=== PATIENT | female | born 1960 | race Caucasian/White ===

== ENCOUNTER 2020-06-04 10:30 | Outpatient (CLI) | payer BC, SELFPAY ==
--- NOTE | ~2020-06-04 | MM_ITS ---
EXAMINATION: MM screening christopher BI w marie HISTORY: Screening TECHNIQUE: Craniocaudal and mediolateral oblique 3-D tomosynthesis images were obtained and synthetic 2-D images were generated. CAD analysis was submitted and interpreted. COMPARISON: Comparison to multiple prior studies sequentially, with oldest reviewed study dated 01/23. BREAST PARENCHYMAL COMPOSITION: The breasts are heterogeneously dense, which may obscure small masses . FINDINGS: There is no evidence of suspicious mass, calcification, or architectural distortion to sugg est malignancy in either breast. There has been no suspicious interval change. IMPRESSION: 1. No mammographic evidence of malignancy. 2. Recommend routine screening mammography in one year. BI-RADS Category 1: Negative Reviewed, dictated and finalized at location A. LIBRARIAN
== END 2020-06-04 10:31 | disposition home or self-care (01) ==
LOC: ANHIMG 10:32
PROVIDERS: PCP Internal Medicine; Visit Provider Obstetrics & Gynecology
DX: Z12.31 Encounter for screening mammogram for malignant neoplasm of breast (principal)
CPT/HCPCS: 77063; 77067

== ENCOUNTER 2021-08-22 14:11 | Outpatient (CLI) | payer BC, SELFPAY ==
--- NOTE | ~2021-08-22 | MM_ITS ---
EXAMINATION: MM screening christopher BI w marie HISTORY: Screening mammogram TECHNIQUE: Craniocaudal and mediolateral oblique 3-D tomosynthesis images were obtained and synthetic 2-D images were generated. CAD analysis was submitted and interpreted. COMPARISON: 06/04/2020 bilateral screening mammogram 06/27/2019 diagnostic left mammogram 05/2019 bilateral screening mammogram BREAST PARENCHYMAL COMPOSITION: The breasts are heterogeneously dense, which may obscure small masses . FINDINGS: There is biopsy marker adjacent to a stable circumscribed approximately 8 mm mass in the po sterior lower inner right breast; history of benign pathology. There is no evidence of suspicious mas s, calcification, or architectural distortion to suggest malignancy in either breast. There has been no suspicious interval change. IMPRESSION: 1. Benign finding. No mammographic evidence of malignancy. 2. Recommend routine screening mammography in one year. BI-RADS Category 2: Benign finding(s). Reviewed, dictated and finalized at location A. UNICATION SKILLS INSTRUCTOR
== END 2021-08-22 14:12 | disposition home or self-care (01) ==
LOC: ANHIMG 14:13
PROVIDERS: PCP Internal Medicine; Visit Provider Obstetrics & Gynecology
DX: Z12.31 Encounter for screening mammogram for malignant neoplasm of breast (principal)
CPT/HCPCS: 77063; 77067

== ENCOUNTER 2022-01-02 13:27 | Outpatient (CLI) | payer BC, SELFPAY | END 2022-01-02 13:28 | disposition home or self-care (01) | PROVIDERS: PCP Physician Assistant; Visit Provider Obstetrics & Gynecology | DX: Z01.818 Encounter for other preprocedural examination (principal); Z41.9 Encounter for procedure for purposes other than remedying health state, unspecified | CPT/HCPCS: 36415; 86850; 86900; 86901 ==

== ENCOUNTER 2022-01-09 01:16 | Day surgery (SDC) | payer BC, SELFPAY ==
[2022-01-01 15:33] VITALS: BMI 37.6
--- NOTE | 2022-01-01 15:41 | PC.NURSE ---
Report to the Outpatient Waiting Room, entrance under the green pavilion located off [facility], at time __11:30AM on date __[id number] . OR Time: __13:30PM___. - You and your visitor will be asked a series of questions to screen for COVID 19 for your protection. - Only one visitor is allowed at this time. - The patient visitor is requested to leave or wait in car when not with patient. - A mask is required within the hospital. Patients may have clear liquids (water, carbonated beverages, clear teas, apple juice) until 3 hours prior to surgery with a maximum of 20 ounces. NOTHING AFTER 10:30AM - No food from midnight until time of surgery Take the following medications with a SIP of water the morning of surgery: Medications to discontinue per physician Date to take last dose Please no make-up, nail montserratian, hairspray, perfume, deodorant, or body powder the day of surgery. No jewelry (including any body piercings) or valuables the day of surgery, leave them at home. Please take a shower or bath the night before, or the morning of, surgery with an antibacterial soap. Wear comfortable, loose fitting clothing. - Jewelry must be removed prior to entering the operating room. Rings and piercings that are not removed may be cut off. - The hospital will not accept responsibility for valuables. - Please leave all valuables, including medications, at home the day of surgery. If you are going home after surgery, a licensed double bottom driver must drive you home. - NO public transportation without another adult. - We recommend that an adult stay with you for 24 hours following discharge. - We also recommend that you do not drive, make important decision, drink alcoholic beverages, or take any drugs that were not prescribed by your health care provider for at least 24 hours after your discharge time. Follow any additional instructions given to you from your surgeon. If you or anyone in your household have experienced Covid symptoms in the past week, please notify your surgeon or the nurse liaison at the phone number below for possible testing. Telephone instructions given to ____PATIENT and asked if any additional questions and then verbalized understanding. Patient advised to call surgeon office or pre surgery nurse liaison [phone] if any additional questions.
--- NOTE | 2022-01-08 12:26 | P.PNAN_ITS ---
Anes - Initial Pre Proc Eval Procedure: Operation Date: 01/09/22 13:30 Proposed Procedures p Laparoscopic Left Salpingo Oophorectomy - Peña Figueroa MD Date/Time: 01/08/22 12:26 Surgeon: Peña Figueroa MD Pre Op Diagnosis: left ovarian cyst, lower left quad pain Patient Data Age: 61 Gender: F Height: 1.7 m Weight: 109 kg Allergies Allergy/AdvReac Type Severity Reaction Status Date / Time metronidazole AdvReac Mild Nausea and Verified 01/09/22 11:42 Vomiting Penicillins AdvReac Unknown UNKNOWN- WAS Verified 01/09/22 11:41 WHEN I WAS A BABY Home Medications Medication Instructions Recorded Confirmed Type Betahistine 8 mg PO TID 01/09/22 01/09/22 History cyanocobalamin (vitamin B-12) 500 500 mcg PO EVERY OTHER DAY 01/09/22 01/09/22 History mcg tablet Patient hx anesthesia problems: none Family hx anesthesia problems: none Results Review: All pre-operative results and documents have been reviewed as part of the pre- operative evaluation. [facility]LY [facility] Past Medical History Medical History Diverticulosis Obesity PONV (postoperative nausea and vomiting) Surgical History Surgical History H/O: hysterectomy History of colon resection Social History Social History Smoking status: Never smoker Second hand tobacco smoke exposure: Yes (PARENTS) Alcohol intake: former Substance use: never Substance use type: does not use Living arrangements: with family Spiritual care concerns: No Anes - Eval Final PreProcedure Day of Procedure 01/08/22 12:26 Patient weight: obese Heart: regular rate and rhythm Lungs: clear to auscultation and normal air movement Airway: Mallampati scale class II Neurological: alert and oriented Last oral intake: >/= 8 hours ASA classification: II Emergent: no Anesthetic plan: proceed Anesthesia type and monitoring: general ETT Results Review: All pre-operative results and documents have been reviewed as part of the pre- operative evaluation. Informed Consent: The patient's anesthetic plan and its attendant risks and benefits were discussed with the patient/family/POA. Questions were solicited and answers provided to the satisfaction of the patient/family/POA.
[2022-01-09] VITALS (11 sets, daily range): BP systolic 116–157; BP diastolic 60–97; PULSE 43–65; RESP 10–20; TEMP 36.2–36.5; O2SAT 93–100
--- NOTE | 2022-01-09 12:03 | PM.IMHP ---
H&P: HPI History of Present Illness Date/Time: 01/09/22 12:03 61 y/o with a longstanding history of a 7 cm, simple-appearing, left adnexal cyst. She has intermittent pain in the area. She is ready for surgical management of her problem. Chief Complaint: Ovarian cyst Review of Systems Review of Systems: All systems reviewed & are unremarkable except as noted in HPI and below PMFSH Past Medical History Medical History Diverticulosis Obesity PONV (postoperative nausea and vomiting) Surgical History Surgical History H/O: hysterectomy History of colon resection Social History Social History Smoking status: Never smoker Second hand tobacco smoke exposure: Yes (PARENTS) Alcohol intake: former Substance use: never Substance use type: does not use Living arrangements: with family Spiritual care concerns: No Meds Home Medications and Allergies Home Medications Medication Instructions Recorded Confirmed Type Betahistine 8 mg PO TID 01/09/22 01/09/22 History cyanocobalamin (vitamin B-12) 500 500 mcg PO EVERY OTHER DAY 01/09/22 01/09/22 History mcg tablet Allergies Allergy/AdvReac Type Severity Reaction Status Date / Time metronidazole AdvReac Mild Nausea and Verified 01/09/22 11:42 Vomiting Penicillins AdvReac Unknown UNKNOWN- WAS Verified 01/09/22 11:41 WHEN I WAS A BABY Vital Signs AVSS Exam Const: Orientation/consciousness: patient oriented x3 Other: Well-developed, well-nourished female in no acute distress. Neck: Thyroid: thyroid normal Lymphatic: no lymphadenopathy noted (in neck, axilla or inguinal nodes) Resp: Effort & Inspection: normal respiratory effort Auscultation: clear to auscultation bilaterally Cardio: Rate: regular rate Rhythm: regular rhythm Heart sounds: S1 normal heart sound present and S2 normal heart sound present GI: Other: ABD: Soft, nontender, nondistended. No guarding or rebound tenderness. No hepatosplenomegaly. : General: Yes no CVA tenderness Other: External genitalia: normal female hair distribution, without lesion. Urethral meatus: no lesion, non prolapsed. Bladder: no mass, nontender Vagina: atrophic, without lesion or discharge. No cystocele or rectocele. Cervix: absent. Uterus: absent Adnexa: Some left adnexal tenderness. Anus/perineum: no lesions, nontender Back/Spine/Pelvis: Back: no CVA tenderness Skin: General skin exam: normal color and no rashes or lesions noted Neuro: General: patient oriented x3 Extrem: Other: Extremities: nontender with no edema Psych: Mental Status: mental status grossly normal Affect: normal affect Assessment and Plan Assessment and plan (1) Left ovarian cyst: Code(s): N83.202 - Unspecified ovarian cyst, left side Status: Acute Assessment and Plan: A: Persistent simple left adnexal cyst in the setting of pain. P: Offered laparoscopic left salpingooophorectomy. She understands risks of surgery to include risks of anesthesia, risks of pain, infection, bleeding, blood products, thromboembolic phenomena and damage to adjacent structures such as bowel, bladder, ureters, blood vessels and nerves. She understands all these risks and elects to proceed with surgery.
--- NOTE | 2022-01-09 12:08 | WPDHPUPDATE1 ---
History and Physical Update Update Date/Time: 01/09/22 12:08 History and Physical has been reviewed, including an updated exam of the patient. There are NO changes in the patient's condition. Risks, benefits, and alternatives have been discussed and questions answered. Patient agrees to proceed with procedure.
[2022-01-09] MEDS: ACETAMINOPHEN 500 MG TABLET 1000 MG PO (12:09)
[2022-01-09] MEDS: LACTATED RINGERS 1,000 ML 30 ML IV CONT ×2 (12:20→14:13)
[2022-01-09] MEDS: KETOROLAC 15 MG/ML VIAL (*BKC) IV PUSH ×2 (12:22→17:20)
[2022-01-09] MEDS: SCOPOLAMINE 1.5 MG PATCH TRANSDERM (12:27)
--- NOTE | 2022-01-09 14:05 | P.OP_ITS ---
Procedure Note - Detailed Date of Procedure 01/09/22 Pre-op Diagnosis Pelvic pain Left adnexal cyst Post-op Diagnosis Same Procedure Performed Laparoscopic LSO Surgeon Peña Figueroa MD Anesthesia General Findings Adhesions between omentum and anterior abdominal wall. 7 cm simple left ovarian cyst. Surgically absent uterus, cervix, right tube and ovary. Description of Procedure The patient was taken to the operating room where general endotracheal anesthesi a was administered. She was prepared and draped in the usual sterile fashion in the dorsal lithotomy position. The bladder was drained with a red rubber catheter. A sponge stick was placed into the vagina. Gloves were changed and attention was turned to the abdomen. An infraumbilical skin incision was made with a scalpel. The abdomen was tented and a 5 millimeter bladeless trocar trocar was advanced under direct laparoscopic visualization. Pneumoperitoneum was administered using carbon dioxide gas. A survey of the pelvis and abdomen yielded the findings noted above. A second 5 mm incision was made in the right lower quadrant and a 5 mm bladeless trocar was advanced under direct laparoscopic visualization. An 11-12 mm port was similarly placed in the left lower quadrant. Endoshears were used to lyse adhesions in order to visualize the pelvic anatomy. The left ureter was visualized. Adhesiolysis was undertaken to free the left adnexa from the pelvic sidewall. The simple ovarian cyst ruptured and clear serous fluid was noted. The infundibulopelvic ligament on the left was then clamped, ligated and transected using ligasure. The specimen was withdrawn and sent to pathology. The pelvis was irrigated with warmed normal saline. Hemostasis was excellent. The fascia at the left lower quadrant incision was reapproximated with a single interrupted suture of 0 Vicryl. The trocars were withdrawn and the gas was allowed to escape. The skin incisions were reapproximated using 4-0 Vicryl in interrupted subcuticular fashion. Dermaflex was applied externally. The vaginal sponge stick was withdrawn and hemostasis was excellent here as well. Sponge, lap, needle and instrument counts were correct. The patient was awakened and taken to recovery in stable condition. I was present and scrubbed through the entire procedure. Estimated Blood Loss 5 Drains No Packing No Pathology Yes (Left tube and ovary) Complications None Condition Stable Disposition PACU
[2022-01-09] MEDS: fentaNYL CITRATE INJ (*CRX) 100 MCG/2 ML VIAL 25 MCG IV PUSH ×8 (14:39→17:04)
[2022-01-09] MEDS: oxyCODONE HCL (*CRX) 5 MG TAB IR PO (16:08)
--- NOTE | 2022-01-09 16:37 | SUR.PHASEII ---
Notified anesthesia regarding patient's increased pain despite use of pain pill. Ordered to give remaining doses of IV fentanyl.
[2022-01-09] MEDS: HYDROmorphone HCL INJ (*CRX) 1 MG/ML SYR 0.5 MG IV PUSH (17:25)
--- NOTE | 2022-01-09 17:25 | SUR.PHASEII ---
171- Notified Dr. Mari of patient's continued pain despite receiving the remaining doses of fentanyl. Orders received and completed. See MAR documentation.
== END 2022-01-09 17:36 | disposition home or self-care (01) ==
PROVIDERS: PCP Physician Assistant; Visit Provider Obstetrics & Gynecology
PROC: (CPT 49320; principal; 2022-01-09 13:30)
DX: R10.2 Pelvic and perineal pain (principal); D27.1 Benign neoplasm of left ovary; Z90.710 Acquired absence of both cervix and uterus; N73.6 Female pelvic peritoneal adhesions (postinfective); E66.9 Obesity, unspecified; Z68.37 Body mass index [BMI] 37.0-37.9, adult
CPT/HCPCS: 58661; 88305; A9270; J0330; J1100; J1170; J1885; J2405; J2704; J3010; J7120

== ENCOUNTER 2023-09-14 14:21 | Outpatient (CLI) | payer BC, SELFPAY ==
--- NOTE | ~2023-09-14 | MM_ITS ---
EXAMINATION: MM screening christopher BI w marie HISTORY: Screening TECHNIQUE: Craniocaudal and mediolateral oblique 3-D tomosynthesis images were obtained and synthetic 2-D images were generated. CAD analysis was submitted and interpreted. COMPARISON: Comparison to multiple prior studies sequentially, with oldest reviewed study dated 09/2018. BREAST PARENCHYMAL COMPOSITION: Dense: The breasts are heterogeneously dense, which may obscure small masses FINDINGS: There is no evidence of suspicious mass, calcification, or architectural distortion to sugg est malignancy in either breast. There has been no suspicious interval change. Stable benign-appearin g right breast mass. IMPRESSION: 1. No mammographic evidence of malignancy. 2. Recommend routine screening mammography in one year. BI-RADS Category 2: Benign finding(s). Reviewed, dictated and finalized at location A.
== END 2023-09-14 14:22 | disposition home or self-care (01) ==
LOC: ANHIMG 14:23
PROVIDERS: PCP Physician Assistant; Visit Provider Obstetrics & Gynecology
DX: Z12.31 Encounter for screening mammogram for malignant neoplasm of breast (principal)
CPT/HCPCS: 77063; 77067

== ENCOUNTER 2024-10-31 15:23 | Outpatient (CLI) | payer BC, SELFPAY ==
--- NOTE | ~2024-10-31 | MM_ITS ---
EXAMINATION: MM screening christopher BI w marie HISTORY: Screening TECHNIQUE: Craniocaudal and mediolateral oblique 3-D tomosynthesis images were obtained and synthetic 2-D images were generated. CAD analysis was submitted and interpreted. COMPARISON: Comparison to multiple prior studies sequentially, with oldest reviewed study dated 04/30. BREAST PARENCHYMAL COMPOSITION: Not dense: There are scattered areas of fibroglandular density. FINDINGS: There is no evidence of suspicious mass, calcification, or architectural distortion to sugg est malignancy in either breast. There has been no suspicious interval change. IMPRESSION: 1. No mammographic evidence of malignancy. 2. Recommend routine screening mammography in one year. BI-RADS Category 1: Negative Reviewed, dictated and finalized at location A.
--- OUTSIDE RECORDS SUMMARY | 2024-10-31 16:16 | XMS_ITS | Encounter Summary ---
Author Organization [facility] Healthcare Address [address] [place] [address] Care Team Providers Care Electro Mechanical Engineer Name Role Phone Roger Vela MD Unavailable [phone] Lyle Steele Primary Care Provider Gerard Spicer MD Unavailable [phone] Encounter Details Date Type Department Care Team (Late st Contact Info) Description 08/04/2024 Telephone [facility] Primary Care at [address] [place] [address] Lyle Steele PA [address] [place] [address] [address] [place] [address] Social History Tobacco Use Types Packs/Day Years Used Date Smoking Tobacco: Never Smokeless Tobacco: Never Alcohol Use Standard Drinks/Week Comments No 0 (1 standard drink = 0.6 oz pur e alcohol) Social Connection and Isolat ion Panel [NHANES] Answer Date Recorded In a typical week, how many times do you talk on the phone with family, friends, or neighbors? More than three times a week 11/21/2020 How often do you get togethe r with friends or relatives? Once a week 11/21/2020 How often do you attend chur or episcopal services? Never 11/21/2020 Do you belong to any clubs o r organizations such as buddhism groups, unions, fraternal or athletic groups, or school groups? No 11/21/2020 How often do you attend meet ings of the clubs or organizations you belong to? Never 11/21/2020 Are you , , di vorced, , never , or living with a partner? 11/21/2020 AUDIT-C Answer Date Recorded Q1: How often do you have a drink containing alcohol? Never 07/26/2024 Q2: How many drinks containi ng alcohol do you have on a typical day when you are drinking? Patient does not drink Q3: How often do you have si x or more drinks on one occasion? Never 07/26/2024 Overall Financial Resource Strain (CARDIA) Answe r Date Recorded How hard is it for you to pa y for the very basics like food, housing, medical care, and heating? Not hard at all 11/21/2020 PHQ-2 Answer Date Recorded PHQ-2 Total Score (If total score is 3 or more points, staff should administer the PHQ-9) 0 07/26/2024 PRAPARE - Transportation Answer Date Re corded In the past 12 months, has l ack of transportation kept you from medical appointments or from getting medications? No 10/28 In the past 12 months, has l ack of transportation kept you from meetings, work, or from getting things needed for daily living? No 11/21/2020 Personal Safety Answer Date Recorded Have you ever been in or are you currently in a harmful physical or emotional relationship or is someone making you feel afraid or unsafe? 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 05/21/2024 05/31/2024 08/19/2024 3:[address] documented as of this encounter Care Teams Electro Mechanical Engineer Relationship Specialty Start Date End Date Lyle Steele PA [address] [place] [address] PCP - General Internal Medicine 02/27/22 [place] [address] [place] [address] Consulting Physician Gastroenterology 11/25/20 Gerard Spicer MD [address] [place] [address] Surgeon Orthopedic Surgery 07/21/23 [facility] 07/26/24 documented as of this encounter
--- OUTSIDE RECORDS SUMMARY | 2024-10-31 16:16 | XMS_ITS | Clinical Summary ---
Author Organization [facility] Address [address] [place] [address] Phone Care Team Providers Care Dermatology Specialist Name Role Phone Peña Figueroa MD Primary Care Provider Allergies Active Allergy Reactions Criticality Noted Date Comments Penicillins Unknown 05/07/2009 Pt had as a child Medications No known medications Active Problems Patient Care Coordination No te Formatting of this note migh t be different from the original. Primary Care: Peña Figueroa MD Referring Provider: No referring provider defined for this encounter. Other: Dr. 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 Gender Identity Not on file Sexual Orientation Not on file Last Filed Vital Signs Vital Sign Reading Time Taken Comments Blood Pressure 121/78 06/18/2009 3:45 PM FIRE ENGINE PUMP OPERATOR Pulse - - Temperature - - Respiratory Rate - - Oxygen Saturation - - Inhaled Oxygen Concentration - - Weight 104.3 kg (230 lb) 06/18/2009 3:45 PM FIRE ENGINE PUMP OPERATOR Height 172.7 cm (5' 8 ) 06/18/2009 3:45 PM FIRE ENGINE PUMP OPERATOR Body Mass Index 34.97 06/18/2009 3:45 PM FIRE ENGINE PUMP OPERATOR Plan of Treatment Health Maintenance Due Date Last Done Comments DTAP/TDAP/TD VACCINES (1 - Tdap) 1979 HPV/Cotest (21-29) 1981 CERVICAL CANCER SCREENING 1990 HPV/Cotest (30-65) 1990 PAP SMEAR 1990 COLORECTAL SCREENING 2005 Colorectal Cancer Screening 2005 FIT-DNA Q 3 years 2005 FIT/FOBT Q 1 year 2005 Flex Sig/CT Colonography Q 5 years 2005 BREAST CANCER SCREENING 05/07/2010 05/07/2009 ZOSTER VACCINE (1 of 2) 2010 INFLUENZA VACCINE (#1) 2024 RSV VACCINE (60+ or ) (1 - 1-dose 75+ series) 2035 Procedures Procedure Name Priority Date/Time Associated Diagnosis Comments MAMMO DIAGNOSTIC UNI RIGHT W OR WO CAD Routine 05/07/2009 from Last 3 Months or Most Recently Relevant to Health Maintenance Results * MAMMO DIGITAL DIAG UNI RIGHT (05/07/2009) Anatomical Region Laterality Modality Breast Right Other Geno Loja MD MAMMO ORDERABLES Final Result from Last 3 Months or Most Recently Relevant to Health Maintenance Care Teams Dermatology Specialist Relationship Specialty Start Date End Date Peña Figueroa MD [address] [facility] [address] [place] [address] PCP - General 05/07/09
--- OUTSIDE RECORDS SUMMARY | 2024-10-31 16:16 | XMS_ITS | Referral Summary ---
Author Organization [facility] Building A Address [address] [place] [address] Care Team Providers Care Flavorer Name Role Phone Roger Ellsworth MD Unavailable [phone] Lyle Steele Primary Care Provider Gerard Spicer MD Unavailable [phone] Encounters Date Type Department Care Team Description 10/26/2024 Orders Only [facility] Primary Care at [address] [place] [phone] Lyle Steele PA Osteopenia, unspecified location (Primary Dx) 10/26/2024 Results Follow-Up [facility] Primary Care at [address] [place] [phone] Lyle Steele PA 10/25/2024 10:39 AM CDT - 10/25/2024 11:59 PM CDT Hospital Encounter [facility] [address] [place] [address] Osteoporosis screening; Postmenopausal Discharge Disposition: Discharge to home or self care 10/25/2024 10:15 AM CDT Office Visit [facility] Orthopedics and Sports Medicine [address] [facility] [address] [place] [phone] Gerard Spicer MD Primary osteoarthritis of right knee (Primary Dx) 08/04/2024 Telephone [facility] Primary Care at [address] [place] [address] Lyle Steele PA from Last 3 Months Allergies Active Allergy Reactions Criticality Noted Date Comments Metronidazole Nausea & Vomiting Low 01/13/2019 Penicillins Unknown 05/07/2009 Pt had as a child; cefazolin was given in 02/2021 Medications cyanocobalamin (Vitamin B-12) 500 mcg tabletIndicatio ns:Prevention of Vitamin B12 Deficiency Take 1 tablet (500 mcg total) by mouth daily. 30 tablet 11 11/09/2017 Active omeprazole 20 mg tablet,delayed release (DR/EC) Take by mouth Active betahistine TAKE 1 CAPSULE (8 MG TOTAL) BY MOUTH 3 TIMES A DAY WITH FOOD 270 capsule 1 05/02/2024 Active Hospital, Clinic, or Other Facility Administered Medication Ordered Dose Route Frequency Start Date End Date Status lidocaine (XYLOCAINE) 20 mg/mL (2 %) injection 3 mLIndications:Admini stration of Local Anesthesia 3 mL One-Time Injection 10/25/2024 5 Ended methylPREDNISolone acetate (DEPO-medrol) injection 80 mgIndications:Primar y osteoarthritis of right knee 80 mg intra-artic One-Time Injection 10/25/2024 5 Ended Active Problems Problem Noted Date Diagnosed Date Functional dyspepsia 05/03/2024 Arthritis 02/14/2022 Peripheral tear of lateral m eniscus of right knee as current injury 03/15/2021 Overview (03/15/2021): Added automatically from request for surgery [id number] Primary osteoarthritis of right knee 09/12/2020 Class 2 obesity with body ma ss index (BMI) of 38.0 to 38.9 in adult 07/18/2020 Assessment & Plan (07/26/2024 8:29 AM ENVIRONMENTAL COMPLIANCE SPECIALIST): The patient was counseled on the importance of maintaining a healthy weight and the risks of obesity. Weight loss recommended. Assessment & Plan (05/11/2024 4:00 PM ENVIRONMENTAL COMPLIANCE SPECIALIST): Wt Readings from Last 3 Encounters: 05/11/24 105.6 kg (232 lb 14.4 oz) 04/28/24 108 kg (238 lb) 01/19/24 107.7 kg (237 lb 6.4 oz) Body mass index is 38.76 kg/m . -Stable, not at goal of <30 bmi -Discussed recommendations for exercise at least 30 minutes moderate to vigorous exercise as tolerated most days of the week. (minimum 150 minutes weekly) -Discussed importance of well-balanced diet Assessment & Plan (05/13/2021 10:38 AM ENVIRONMENTAL COMPLIANCE SPECIALIST): Wt up Assessment & Plan (01/21/2021 11:20 AM CDT): Work to drop over time Assessment & Plan (07/18/2020 10:41 AM ENVIRONMENTAL COMPLIANCE SPECIALIST): Cont to drop some wt Posterior knee pain, right 07/18/2020 Assessment & Plan (07/18/2020 10:43 AM ENVIRONMENTAL COMPLIANCE SPECIALIST): Not clear if knee or thigh not apparent nerve would askortho for eval and Thoughts.workup and rx. Gastroesophageal reflux disease without esophagi tis 07/04/2020 Assessment & Plan (05/13/2021 10:37 AM ENVIRONMENTAL COMPLIANCE SPECIALIST): gerd contoroled and not on ppi consdier pepcidif needs there Assessment & Plan (01/21/2021 11:18 AM CDT): prilisec 20 restarted by gi. And warned about renal effect and prefers not on and lacho monitor renal and recheck 24 hr ruien on reutnrTo try to minimize the worsening and possible improvement in the renal function there are several things to try to do. The patient should work to get off of (if on) drugs Like Prilosec/prevacid/protonix/nexium,etc. This does not include zantac/pepcid or Tagement. It ws shown that there is an increased risk of kidney dysfunction if you use Prilosec like meds.The patient should also stay off of regular use of scripted arthritis pills like Celebrex.mobic,naprosyn,etc. The over the counter pills of this nature are Advil/motrin/ibuprofen and aleve/naproxen. Regular use of these over the counter pills, Particularly at high doses and not scattered use of the meds also can harm the kidneys. Assessment & Plan (07/18/2020 10:39 AM ENVIRONMENTAL COMPLIANCE SPECIALIST): Hiccups with meat and not lequids or other items in general . Getting colon on mond and will ask to wsee if gi can't do egd at same time to eval the prilosec reportedly was 300$ and not covered. Ask to have her review with the gi dr ellsworth as to what is going on so if egd not an anwer he can then go to the next step or send back to use then if no answer. . Would not want on ppil for longer then have to if neeeded but aware there if a dissaggresment with gi and renal when it comes to the med of this type Assessment & Plan (07/04/2020 11:32 AM ENVIRONMENTAL COMPLIANCE SPECIALIST): Prolonged top Or tori of month for over a month and neg strep trial prilosce 20 bid and diet and see if Helps. Renal effect disscused but lats gfr nl and montior and try to get off Chronic UTI 07/06/2019 Assessment & Plan (01/16/2020 10:54 AM CDT): Abn nl urine stable and without issues and not treat Assessment & Plan (07/06/2019 11:36 AM ENVIRONMENTAL COMPLIANCE SPECIALIST): Repeated urine showing abn And cult + f9or uti with + nitrates and wbc as without c/op will not treat. But if c.o then look at treating and can use the culture we have to guide r Pure hypercholesterolemia 05/25/2018 Assessment & Plan (07/26/2024 8:29 AM ENVIRONMENTAL COMPLIANCE SPECIALIST): Counseled on heart healthy diet exercise Assessment & Plan (05/13/2021 10:37 AM ENVIRONMENTAL COMPLIANCE SPECIALIST): ldl at 127 and not on meds asn ascvd risk 4 and iwll watch and start ms if goes upThe common cold or uri(upper respiratory infections) are uniformly caused by viruses.The use of antibiotics for these infections are discouraged in our day and age as a risk without much if any benefit,Increase fluids will help to thin the secretions.Over the counter meds/cold drugs do not cure this problem but can provide help in tolerating the illness.. Some find the decongestant meds helpful but many find them causing more complaints then they are worth. Cough meds come into play when you cannot control the cough,This comes into play ginger.at night when you are trying to sleep. Short term use of nasal decongestants are helpful ,ginger.at night, Using them at a full dose for more then 3 days is highly associated with your nose becoming addicted to them,when this happens the nasal membranes will dilate the blood vessels within the nasal wall and weep secretions that plug up your nose. When this occurs it will take several days to return to normal. There is a place for nasal steroid during a cold as a way to help limit secretions and not lead to a nasal addition. Nasal over dryness and subsequent bleeding then can occur.ar which time yo will need to reduce or stop there use for the near future. Assessment & Plan (01/21/2021 11:17 AM CDT): ldl at 136 and 1303 and leess good so watch dietYour cholesterol in the form of ldl (bad) cholesterol,hdl(good) cholesterol and triglycerides are monitored. The triglycerides respond to reduction/controll of your simple carbs/sugars In such items as sugared soda/sweet tea along with fruit juices(containing natural sugar) even if no added sugar is added. LDL cholesterol is reduced with reducing daily intake of fats and ginger. saturated fats. The monosaturated fats like olive oil are not harmful except in the calories they contained. Whole milk cheese needs to be remembered along with whole milk products And limited. Assessment & Plan (07/18/2020 10:40 AM ENVIRONMENTAL COMPLIANCE SPECIALIST): ldl at 128 with ascvd risk 4% and diet fornow unless risk higher or proven arterial dis Assessment & Plan (01/16/2020 10:48 AM CDT): ldl at 144 and target less then 130 and ideally 100. Your cholesterol in the form of ldl (bad) cholesterol,hdl(good) cholesterol and triglycerides are monitored. The triglycerides respond to reduction/controll of your simple carbs/sugars In such items as sugared soda/sweet tea along with fruit juices(containing natural sugar) even if no added sugar is added. LDL cholesterol is reduced with reducing daily intake of fats and ginger. saturated fats. The monosaturated fats like olive oil are not harmful except in the calories they contained. Whole milk cheese needs to be remembered along with whole milk products And limited. Assessment & Plan (11/01/2018 10:47 AM CDT): ldl at 149 and betrer but les then 130 nl. And target. Assessment & Plan (05/25/2018 4:33 PM ENVIRONMENTAL COMPLIANCE SPECIALIST): ldl atr 140 and less then 130 nl. Your cholesterol in the form of ldl (bad) cholesterol,hdl(good) cholesterol and triglycerides are monitored. The triglycerides respond to reduction/controll of your simple carbs/sugars In such items as sugared soda/sweet tea along with fruit juices(containing natural sugar) even if no added sugar is added. LDL cholesterol is reduced with reducing daily intake of fats and ginger. saturated fats. The monosaturated fats like olive oil are not harmful except in the calories they contained. Whole milk cheese needs to be remembered along with whole milk products And limited. IGT (impaired glucose tolerance) 11/09/2017 Assessment & Plan (05/13/2021 10:36 AM ENVIRONMENTAL COMPLIANCE SPECIALIST): a1c at 5.3 and nl Assessment & Plan (01/21/2021 11:19 AM CDT): a1c at 5.4 and nl Assessment & Plan (07/18/2020 10:39 AM ENVIRONMENTAL COMPLIANCE SPECIALIST): a12c droopepd and staying down at 5.2 check onr eturn Assessment & Plan (01/16/2020 10:47 AM CDT): a1cv at 5.3 and nl now Assessment & Plan (11/01/2018 10:47 AM CDT): a1c at 5.4 and nl Assessment & Plan (05/25/2018 4:32 PM ENVIRONMENTAL COMPLIANCE SPECIALIST): a1c at 5.4 and 5.6 nl. Assessment & Plan (11/09/2017 4:44 PM CDT): Check on return Chronic renal failure, stage 2 (mild) 06/18/2017 Assessment & Plan (07/26/2024 8:29 AM ENVIRONMENTAL COMPLIANCE SPECIALIST): Discussed avoiding nephrotoxic drugs Assessment & Plan (05/13/2021 10:40 AM ENVIRONMENTAL COMPLIANCE SPECIALIST): cret cl 61 and has been To 50 and up to 82. To try to minimize the worsening and possible improvement in the renal function there are several things to try to do. The patient should work to get off of (if on) drugs Like Prilosec/prevacid/protonix/nexium,etc. This does not include zantac/pepcid or Tagement. It ws shown that there is an increased risk of kidney dysfunction if you use Prilosec like meds.The patient should also stay off of regular use of scripted arthritis pills like Celebrex.mobic,naprosyn,etc. The over the counter pills of this nature are Advil/motrin/ibuprofen and aleve/naproxen. Regular use of these over the counter pills, Particularly at high doses and not scattered use of the meds also can harm the kidneys. Assessment & Plan (01/21/2021 11:20 AM CDT): gfr suggest worsened and check 24 hr rien on reutnrTo try to minimize the worsening and possible improvement in the renal function there are several things to try to do. The patient should work to get off of (if on) drugs Like Prilosec/prevacid/protonix/nexium,etc. This does not include zantac/pepcid or Tagement. It ws shown that there is an increased risk of kidney dysfunction if you use Prilosec like meds.The patient should also stay off of regular use of scripted arthritis pills like Celebrex.mobic,naprosyn,etc. The over the counter pills of this nature are Advil/motrin/ibuprofen and aleve/naproxen. Regular use of these over the counter pills, Particularly at high doses and not scattered use of the meds also can harm the kidneys. Assessment & Plan (07/04/2020 11:40 AM ENVIRONMENTAL COMPLIANCE SPECIALIST): Last gfr came to nl with prior 2 were not Monitor and try to liiimt ppi's Assessment & Plan (07/06/2019 11:35 AM ENVIRONMENTAL COMPLIANCE SPECIALIST): Stable screens and check 24 hr ruien on reutrnTo try to minimize the worsening and possible improvement in the renal function there are several things to try to do. The patient should work to get off of (if on) drugs Like Prilosec/prevacid/protonix/nexium,etc. This does not include zantac/pepcid or Tagement. It ws shown that there is an increased risk of kidney dysfunction if you use Prilosec like meds.The patient should also stay off of regular use of scripted arthritis pills like Celebrex.mobic,naprosyn,etc. The over the counter pills of this nature are Advil/motrin/ibuprofen and aleve/naproxen. Regular use of these over the counter pills, Particularly at high doses and not scattered use of the meds also can harm the kidneys. Assessment & Plan (12/02/2018 12:24 PM CDT): CC 50 and being closely followed Assessment & Plan (11/01/2018 10:38 AM CDT): Mild drop from 59 to 50. Renal sono withg ilted renal pelvis bilaterally. ot on meds to cause isseu. Would like to see ouro for opoin on what is the issue and pssbile optios. Assessment & Plan (05/25/2018 4:32 PM ENVIRONMENTAL COMPLIANCE SPECIALIST): 24 hr urine at 59 and was 74. Check renal sono to eval for isue causing and monior Serum levelsTo try to minimize the worsening and possible improvement in the renal function there are several things to try to do. The patient should work to get off of (if on) drugs Like Prilosec/prevacid/protonix/nexium,etc. This does not include zantac/pepcid or Tagement. It ws shown that there is an increased risk of kidney dysfunction if you use Prilosec like meds.The patient should also stay off of regular use of scripted arthritis pills like Celebrex.mobic,naprosyn,etc. The over the counter pills of this nature are Advil/motrin/ibuprofen and aleve/naproxen. Regular use of these over the counter pills, Particularly at high doses and not scattered use of the meds also can harm the kidneys. Assessment & Plan (11/09/2017 4:40 PM CDT): .screens stable anld check yr'ly. Assessment & Plan (06/18/2017 4:01 PM ENVIRONMENTAL COMPLIANCE SPECIALIST): gfr at 73 and nl 75. So a touch low. Enough to try to stay clear of nexium or similar pills. Zantac.tagamet/pepcid not an issue to useqwil check the 24 hr uerine/gfr yr'ly and screning labs to monitorTo try to minimize the worsening and possible improvement in the renal function there are several things to try to do. The patient should work to get off of (if on) drugs Like Prilosec/prevacid/protonix/nexium,etc. This does not include zantac/pepcid or Tagement. It ws shown that there is an increased risk of kidney dysfunction if you use Prilosec like meds.The patient should also stay off of regular use of scripted arthritis pills like Celebrex.mobic,naprosyn,etc. The over the counter pills of this nature are Advil/motrin/ibuprofen and aleve/naproxen. Regular use of these over the counter pills, Particularly at high doses and not scattered use of the meds also can harm the kidneys. Bilateral carpal tunnel syndrome 03/11/2017 Assessment & Plan (07/06/2019 11:34 AM ENVIRONMENTAL COMPLIANCE SPECIALIST): mimld and not worse and self montior if see's s worse starts dropoing thing then lneeds looked into and consdier surg cock up splints for intila conservative rx Assessment & Plan (05/25/2018 4:34 PM ENVIRONMENTAL COMPLIANCE SPECIALIST): Mild intermiten and stable Assessment & Plan (06/18/2017 3:55 PM ENVIRONMENTAL COMPLIANCE SPECIALIST): Not an issue now Assessment & Plan (03/11/2017 3:17 PM CDT): Splint have seemed to stop this. If finds yourself droping things or getting worse then needs nerve study and seugical referral to prevent permanent damage Vitamin B12 deficiency 03/11/2017 Assessment & Plan (05/13/2021 10:39 AM ENVIRONMENTAL COMPLIANCE SPECIALIST): b12 543 and stble on 500 tid Assessment & Plan (01/21/2021 11:16 AM CDT): Taking inermittently and at 540 great and cont as doing byut not clear what doing Assessment & Plan (07/18/2020 10:43 AM ENVIRONMENTAL COMPLIANCE SPECIALIST): Stay with and check onreturn Assessment & Plan (07/06/2019 11:33 AM ENVIRONMENTAL COMPLIANCE SPECIALIST): Cont and check on return Assessment & Plan (11/01/2018 10:48 AM CDT): b12 now nl at 921 and stay there Assessment & Plan (05/25/2018 4:30 PM ENVIRONMENTAL COMPLIANCE SPECIALIST): b12 levels at 9990 nd here is ascceptable and would not want higher. Suggest taking 5 days a week instead of daily. Assessment & Plan (11/09/2017 4:31 PM CDT): Restart 5 00 a day and wshould get back up. To above 400 Assessment & Plan (06/18/2017 4:00 PM ENVIRONMENTAL COMPLIANCE SPECIALIST): b12 dropped back to low nl and the neurologist feel that above 220 but below 400 has a 5-10% risk for neuro damage. So I would target getting above 400. So r estart and bring in The dose on return to record and then check effect.l 500 probally yusef be enough and 1000 probably not to much but people are individual and wilol check and track. Assessment & Plan (04/30/2017 2:28 PM CDT): Patient stop vitamin B12 supplementation, this could be contributing somewhat to her paresthesias and tingling in extremities we will recheck levels and follow up with patient regarding results of testing need to continue on management Assessment & Plan (03/11/2017 3:18 PM CDT): b12 between 200-400 Are people with 5-10 % risk of nerve damage at 373 only a little low but take b12 500 a day to push up above this PE (physical exam), annual 03/11/2017 Assessment & Plan (07/26/2024 8:29 AM ENVIRONMENTAL COMPLIANCE SPECIALIST): Discussed routine screenings and vaccines Assessment & Plan (07/18/2020 10:42 AM ENVIRONMENTAL COMPLIANCE SPECIALIST): Colon doing mond. Low fall risk derpioens screen neg cog screen neg Tsh,a1c cmp essentiall nl. Had flu shot and suggest shingles shot series. Christopher up to date. Assessment & Plan (07/06/2019 11:38 AM ENVIRONMENTAL COMPLIANCE SPECIALIST): farhat set female christopher up to date. pamela good for 6 yrs having ist flu shot now discussed shingles shot. tdap consider ginger if grandmother. p shots considder in future Assessment & Plan (03/11/2017 3:19 PM CDT): Screening a1c at 5.3 and nl. The thyroid screen is nl. Christopher due this fall. Fall flu shot to consider. At age 60 usually rec to have shingles. Colon screeen every 10 yrs unless finds high risk status. Essential hypertension 03/11/2017 Assessment & Plan (07/26/2024 8:31 AM ENVIRONMENTAL COMPLIANCE SPECIALIST): Recommend DASH diet, heart healthy lifestyle, exercise. Discussed the risks of hypertension. Assessment & Plan (07/20/2023 7:17 PM ENVIRONMENTAL COMPLIANCE SPECIALIST): Recommend DASH diet, heart-healthy lifestyle, exercise. Discussed the risks of hypertension. Assessment & Plan (01/15/2023 7:08 AM CDT): Recommend DASH diet, heart-healthy lifestyle, exercise. Discussed the risks of hypertension. Assessment & Plan (06/06/2022 7:56 AM ENVIRONMENTAL COMPLIANCE SPECIALIST): Recommend DASH diet, heart-healthy lifestyle, exercise. Discussed the risks of hypertension. Assessment & Plan (12/05/2021 8:45 AM CDT): Recommend DASH diet, heart healthy lifestyle, exercise. Discussed the risks of hypertension. Assessment & Plan (05/13/2021 10:41 AM ENVIRONMENTAL COMPLIANCE SPECIALIST): htn good and watch and crf stable and watchTo try to minimize the worsening and possible improvement in the renal function there are several things to try to do. The patient should work to get off of (if on) drugs Like Prilosec/prevacid/protonix/nexium,etc. This does not include zantac/pepcid or Tagement. It ws shown that there is an increased risk of kidney dysfunction if you use Prilosec like meds.The patient should also stay off of regular use of scripted arthritis pills like Celebrex.mobic,naprosyn,etc. The over the counter pills of this nature are Advil/motrin/ibuprofen and aleve/naproxen. Regular use of these over the counter pills, Particularly at high doses and not scattered use of the meds also can harm the kidneys. Hypertension, Medical treament revolves around weight control, salt management, and meds when necessary. long as weight loss is necessary and you are able to drop weight we can cont to monitor the blood pressure and not add meds. Once the weight is not changing then it becomes nesessary to add meds to be able to reach the goal bp. Assessment & Plan (01/21/2021 11:19 AM CDT): The bp ok and renal Creat 1.21 and was .81 and was 1.21 in past and recheck on return and if cont to go up then strongly urge to stop and work diet 24 Hr urien onreturnHypertension, Medical treament revolves around weight control, salt management, and meds when necessary. long as weight loss is necessary and you are able to drop weight we can cont to monitor the blood pressure and not add meds. Once the weight is not changing then it becomes nesessary to add meds to be able to reach the goal bp.To try to minimize the worsening and possible improvement in the renal function there are several things to try to do. The patient should work to get off of (if on) drugs Like Prilosec/prevacid/protonix/nexium,etc. This does not include zantac/pepcid or Tagement. It ws shown that there is an increased risk of kidney dysfunction if you use Prilosec like meds.The patient should also stay off of regular use of scripted arthritis pills like Celebrex.mobic,naprosyn,etc. The over the counter pills of this nature are Advil/motrin/ibuprofen and aleve/naproxen. Regular use of these over the counter pills, Particularly at high doses and not scattered use of the meds also can harm the kidneys. Assessment & Plan (07/18/2020 10:37 AM ENVIRONMENTAL COMPLIANCE SPECIALIST): Last cr cl came back nl at 82 with creat 1.12 and now 1.21 so likely touch lower. Not on different meds monitor with serum and 24 hr uinre yor'ly in general. The bp goood and Leave same for nowHypertension, Medical treament revolves around weight control, salt management, and meds when necessary. long as weight loss is necessary and you are able to drop weight we can cont to monitor the blood pressure and not add meds. Once the weight is not changing then it becomes nesessary to add meds to be able to reach the goal bp.To try to minimize the worsening and possible improvement in the renal function there are several things to try to do. The patient should work to get off of (if on) drugs Like Prilosec/prevacid/protonix/nexium,etc. This does not include zantac/pepcid or Tagement. It ws shown that there is an increased risk of kidney dysfunction if you use Prilosec like meds.The patient should also stay off of regular use of scripted arthritis pills like Celebrex.mobic,naprosyn,etc. The over the counter pills of this nature are Advil/motrin/ibuprofen and aleve/naproxen. Regular use of these over the counter pills, Particularly at high doses and not scattered use of the meds also can harm the kidneys. Assessment & Plan (01/16/2020 10:46 AM CDT): The bp working well and screening renal stable and check 24 yrlyHypertension, with gfr 82 qne nl now Medical treament revolves around weight control, salt management, and meds when necessary. long as weight loss is necessary and you are able to drop weight we can cont to monitor the blood pressure and not add meds. Once the weight is not changing then it becomes nesessary to add meds to be able to reach the goal bp.To try to minimize the worsening and possible improvement in the renal function there are several things to try to do. The patient should work to get off of (if on) drugs Like Prilosec/prevacid/protonix/nexium,etc. This does not include zantac/pepcid or Tagement. It ws shown that there is an increased risk of kidney dysfunction if you use Prilosec like meds.The patient should also stay off of regular use of scripted arthritis pills like Celebrex.mobic,naprosyn,etc. The over the counter pills of this nature are Advil/motrin/ibuprofen and aleve/naproxen. Regular use of these over the counter pills, Particularly at high doses and not scattered use of the meds also can harm the kidneys. Assessment & Plan (07/06/2019 11:33 AM ENVIRONMENTAL COMPLIANCE SPECIALIST): bp good on meds and no ch aege and suggest self check Creat screens stable and On return get a yr'ly 24 hr ruien for documentatino of renal fulnctino avoid risk meds like sulf. No iv dye etc.Hypertension, Medical treament revolves around weight control, salt management, and meds when necessary. long as weight loss is necessary and you are able to drop weight we can cont to monitor the blood pressure and not add meds. Once the weight is not changing then it becomes nesessary to add meds to be able to reach the goal bp.To try to minimize the worsening and possible improvement in the renal function there are several things to try to do. The patient should work to get off of (if on) drugs Like Prilosec/prevacid/protonix/nexium,etc. This does not include zantac/pepcid or Tagement. It ws shown that there is an increased risk of kidney dysfunction if you use Prilosec like meds.The patient should also stay off of regular use of scripted arthritis pills like Celebrex.mobic,naprosyn,etc. The over the counter pills of this nature are Advil/motrin/ibuprofen and aleve/naproxen. Regular use of these over the counter pills, Particularly at high doses and not scattered use of the meds also can harm the kidneys. Assessment & Plan (12/02/2018 12:24 PM CDT): Recommend DASH diet, heart-healthy lifestyle, exercise. Discussed the risks of hypertension. Assessment & Plan (05/25/2018 4:29 PM ENVIRONMENTAL COMPLIANCE SPECIALIST): Low potassium from dyazide and batsheva potassium and still low so will not restart Assessment & Plan (11/09/2017 4:40 PM CDT): The bp ok and Watch bp. Hypertension, Medical treament revolves around weight control, salt management, and meds when necessary. long as weight loss is necessary and you are able to drop weight we can cont to monitor the blood pressure and not add meds. Once the weight is not changing then it becomes nesessary to add meds to be able to reach the goal bp. Assessment & Plan (06/18/2017 3:53 PM ENVIRONMENTAL COMPLIANCE SPECIALIST): bp good and no chagnesHypertension, Medical treament revolves around weight control, salt management, and meds when necessary. long as weight loss is necessary and you are able to drop weight we can cont to monitor the blood pressure and not add meds. Once the weight is not changing then it becomes nesessary to add meds to be able to reach the goal bp. Assessment & Plan (03/11/2017 3:21 PM CDT): Given current bp and on meds this suppports controlled htn. Check every month or so and cont medsHypertension, Medical treament revolves around weight control, salt management, and meds when necessary. long as weight loss is necessary and you are able to drop weight we can cont to monitor the blood pressure and not add meds. Once the weight is not changing then it becomes nesessary to add meds to be able to reach the goal bp. Meniere's disease of left ear 02/14/2017 Assessment & Plan (01/16/2020 10:54 AM CDT): meds seem sot help and wants to stayon Assessment & Plan (07/06/2019 11:38 AM ENVIRONMENTAL COMPLIANCE SPECIALIST): Stable but at risk for mini flairs Assessment & Plan (05/25/2018 4:30 PM ENVIRONMENTAL COMPLIANCE SPECIALIST): Chronic and ongoing. Uses daily eds. As dyazide. Aldactone a dnotassim stilneeds potassium and stil low willnot restartthe dyazide. Assessment & Plan (06/18/2017 3:54 PM ENVIRONMENTAL COMPLIANCE SPECIALIST): For now settled with meds and do inner ear E xercises and stay off vbalium Assessment & Plan (04/30/2017 2:28 PM CDT): I advised patient of continuing low-salt diet, betahistine as prescribed, and certainly she can continue to see the ENT specialist in regard to this condition management if indicated Assessment & Plan (03/11/2017 3:07 PM CDT): On meds. Low dose once a day 1mg valium Had pt. Limits salt and one major spell with major abarupt head movement. Offered neuro proof machine operator referral as next stop to hear and see the sub specialist that works in this area on this problem Assessment & Plan (02/14/2017 10:18 AM CDT): Triamterine/hctz classic med to use. addd inner ear maneuvers to do with self and pt Referral for to see if helps. The specialist are reallly really pushy about limits on salt intact so be ginger careful to work to drop salt in diet. If cont to have issue with vertigo then will try to add 1/2 mg of valium once to twice a day/iner ear referral to spcilist as well. Ulnar neuropathy of both upper extremities 02/14 Assessment & Plan (07/06/2019 11:34 AM ENVIRONMENTAL COMPLIANCE SPECIALIST): Stable and mild intermittnet and swelf montior eval and referrral if wrose Assessment & Plan (06/18/2017 3:55 PM ENVIRONMENTAL COMPLIANCE SPECIALIST): Not an issue now Assessment & Plan (03/11/2017 3:06 PM CDT): Finds Wrist splints helpful but clumsy . Prepared to get a 2nd one to use on both w rist at night. If drops things. Cont to have problems then study and refer to a surgeon. withteh splints helping it supports the problem at the wrist Assessment & Plan (02/14/2017 10:21 AM CDT): Trial wrist splints that are m eant to cocl up the wrist. Wear at night after done with supper and reading paper /not working. Sleep in. If cont to not settle then do nerve studies of forarms to eval for. .thyroid and b12 can play a role as well as sugar and will check on on return Slow transit constipation 02/14/2017 Assessment & Plan (07/06/2019 11:35 AM ENVIRONMENTAL COMPLIANCE SPECIALIST): Better over all very marked resonce to smal dose lactulose and suggged to find smindgin dose that can take to control Assessment & Plan (11/01/2018 10:46 AM CDT): Failed tiral oral meds for constipation. For miralax. Fibers. Etc Trial lactulose first and use up to 3 t tid and then look at nex step linaclotide 145 mg and see if helpful.as thuyroid not cheked in last yrs will check to make sure not playing a jacki Assessment & Plan (03/11/2017 3:22 PM CDT): Send for colon report to ad to record Assessment & Plan (02/14/2017 10:20 AM CDT): As gagger that can't orally take in many things I would ask to add a cap of miralax to foods daily and look for effect over a week and adjust after that usingt a week time to adjust up or down. Add a cap of probiotic to daily intake and over weeks this will help most. Will ask to check thyroid lab to prove not playing a role as well. Deafness in right ear 08/10/2015 Overview (05/11/2024): Note: - Childhood injury Resolved Problems Problem Noted Date Diagnosed Date Resolved Date Abdominal pain, right upper quadrant 05/03/2024 07/26/2024 Nausea 05/03/2024 07/26/2024 Diverticulitis 02/14/2022 07/26/2024 Acute deep vein thrombosis ( DVT) of popliteal vein 04/22/2021 01/19/2024 Assessment & Plan (05/13/2021 10:42 AM ENVIRONMENTAL COMPLIANCE SPECIALIST): On anticoag and congt meds in general 6 months ask to wear support hose to help. Assessment & Plan (04/22/2021 4:20 PM CDT): Educated on risk and benefits of starting blood thinner including falling and having a head bleed and easy bruising. Start eliquis 10mg bid for 7 days followed by 5mg bid F/u w/ Dr. Najera on 05/13(pt already has an appointment) Orthopedic aftercare 04/09/2021 022 Sciatica of right side 07/04/202007/18 Assessment & Plan (07/04/2020 11:30 AM ENVIRONMENTAL COMPLIANCE SPECIALIST): Post lower thigh and bottom of calf/heel region apperacne fo scialta pred puose would consider ifnot better. BMI 39.0-39.9,adult 07/06/2019 07/18/19 Assessment & Plan (07/04/2020 11:39 AM ENVIRONMENTAL COMPLIANCE SPECIALIST): Wt of helps a lot of things and work with Assessment & Plan (01/16/2020 10:55 AM CDT): Stable and need s to lose Assessment & Plan (07/06/2019 11:37 AM ENVIRONMENTAL COMPLIANCE SPECIALIST): wsork to Drop some wt Chest wall syndrome 11/09/2017 01/16/20 Assessment & Plan (07/04/2020 11:31 AM ENVIRONMENTAL COMPLIANCE SPECIALIST): r chest if muscular sckelatal and Move. Flex twice and possible steroid to hel not shingles Assessment & Plan (11/09/2017 4:39 PM CDT): Work zrea and Time. Skin lesion of right leg 06/18/2017 Assessment & Plan (11/09/2017 4:33 PM CDT): Referral to plastics here for eval for removal. Dr jorge Assessment & Plan (06/18/2017 4:06 PM ENVIRONMENTAL COMPLIANCE SPECIALIST): Referral to derm Sore throat 06/12/2017 11/09/2017 Assessment & Plan (08/21/2017 11:05 AM ENVIRONMENTAL COMPLIANCE SPECIALIST): Rapid strep positive. Assessment & Plan (06/12/2017 11:53 AM ENVIRONMENTAL COMPLIANCE SPECIALIST): Rapid strep positive. Strep pharyngitis 06/12/2017 11/09/2017 Assessment & Plan (08/21/2017 11:06 AM ENVIRONMENTAL COMPLIANCE SPECIALIST): Rapid strep positive. Recommend humidification fluids and rest. Tylenol/ibuprofen prn fever. Take antibiotic as directed. Patient was encouraged to take her antibiotic with food. I also recommended a daily probiotic, yogurt or capsule, while on the antibiotic. We discussed the contagiousness of illness. We discussed ways to prevent recurrence and spread to others. Assessment & Plan (06/18/2017 3:52 PM ENVIRONMENTAL COMPLIANCE SPECIALIST): Treated and the Roof of mouth Sore and red but not strep. Gargle with Peroxide to help clear Assessment & Plan (06/12/2017 11:21 AM ENVIRONMENTAL COMPLIANCE SPECIALIST): Rapid strep positive. Recommend humidification fluids and rest. Tylenol/ibuprofen prn fever. Take antibiotic as directed. Patient was encouraged to take her antibiotic with food. I also recommended a daily probiotic, yogurt or capsule, while on the antibiotic. We discussed the contagiousness of illness. We discussed ways to prevent recurrence and spread to others. Cough 06/12/2017 06/18/2017 Assessment & Plan (06/12/2017 11:54 AM ENVIRONMENTAL COMPLIANCE SPECIALIST): Rapid influenza A negative and B negative. Recommended humidification, fluids, and rest. Offered cough suppressant - she declines. Close follow-up here with absolutely any change in, worsening, or non improvement in condition. Epigastric pain 04/30/2017 06/18/2017 Assessment & Plan (04/30/2017 2:27 PM CDT): Clinical presentation suggestive of ulceration this point. I advised patient will do a trial of esomeprazole 20 mg tablets twice daily for the 1st 2 weeks then decreasing to once daily on the 3rd we continuously. I have a follow-up appoint with her here in 2 weeks She was educated regarding dietary management for ulcerative therapy including 5 smaller meals a day and stress management was also discussed. We will follow up with her in 2 weeks or certainly sooner as indicated Also, I did give her the option of completing an upper GI to which she would like to wait on this time will do the trial of Nexium prior to completing scope. Cramping of hands 04/30/2017 06/18/2017 Assessment & Plan (04/30/2017 2:26 PM CDT): Checking electrolytes to determine if there is any deficiencies causing her bilateral hand and feet cramping. I advised her certainly discontinuing her medications including potassium-sparing diuretics considering her history of hypokalemia along with consistent vomiting inclined to think it could be low potassium but will certainly follow up with her tomorrow regarding results of labs and need for additional management In the interim however I advised has started eating some but testing rich foods without lot of citrus considering her epigastric pain, like bananas, increasing fluid intake as well Abnormal serum creatinine level 03/11/2017 06/18/2017 Assessment & Plan (03/11/2017 3:08 PM CDT): This can be nl or not it will take a 24 hr urine collectino to [prove and can do with the nov. Hypokalemia 02/14/2017 06/18/2017 Assessment & Plan (03/11/2017 3:08 PM CDT): Off ptassium pills and on triamterin and aldactone and k up to 3.8 and acceptable where it is at. lacho monitor Assessment & Plan (02/14/2017 10:20 AM CDT): Check chem today. Med on along with salt in diet drives down potassium for many. Limit salt more and will help. Will check today and likely add meds to help keep potassium in. And check again with nov exam. Give script for aldactone 25 to add if potassium low. Will add labs for mag and potassium For nov to recheck Hx of hyperlipidemia 02/14/2017 018 Assessment & Plan (11/09/2017 4:43 PM CDT): ldl at 153 and high and work to get lowerYour cholesterol in the form of ldl (bad) cholesterol,hdl(good) cholesterol and triglycerides are monitored. The triglycerides respond to reduction/controll of your simple carbs/sugars In such items as sugared soda/sweet tea along with fruit juices(containing natural sugar) even if no added sugar is added. LDL cholesterol is reduced with reducing daily intake of fats and ginger. saturated fats. The monosaturated fats like olive oil are not harmful except in the calories they contained. Whole milk cheese needs to be remembered along with whole milk products And limited. Assessment & Plan (06/18/2017 4:02 PM ENVIRONMENTAL COMPLIANCE SPECIALIST): Check on return Assessment & Plan (03/11/2017 3:18 PM CDT): ldl at 140 and 130 and leess nl. Your cholesterol in the form of ldl (bad) cholesterol,hdl(good) cholesterol and triglycerides are monitored. The triglycerides respond to reduction/controll of your simple carbs/sugars In such items as sugared soda/sweet tea along with fruit juices(containing natural sugar) even if no added sugar is added. LDL cholesterol is reduced with reducing daily intake of fats and ginger. saturated fats. The monosaturated fats like olive oil are not harmful except in the calories they contained. Whole milk cheese needs to be remembered along with whole milk products And limited. Diverticulitis of colon 08/01/201606/30 Overview (05/11/2024): Note: history of colon resection Immunizations Immunization Administration Dates Next Due Influenza LAIV (Nasal) 07/26/2024(Deferred: Lissy ent Refused) Influenza, Quadrivalent, Spl it, Preservative Free, Intramuscular 07/21/2023,06/06/2022,05/13/2021,07/04,07/06/2019 Influenza, Unspecified 05/11/2024(Deferr ed: Patient Refused),06/06/2022(Deferred: Patient Refused),07/06/2019(Deferred: Patient Refused),03/29/2019(Deferred: Patient Refused),03/29/2019(Deferred: Patient Refused),09/21/2018(Deferred: Patient ill today),03/29/2018(Deferred: Patient Refused),03/29/2018(Deferred: Patient Refused),03/29/2018(Deferred: Patient Refused) Moderna SARS-CoV-2 Monovalen t Vaccination (12+ YRS) 12/05/2020,10/24/2020 Tdap 12/05/2021 ZOSTER Recombinant 06/06/2022,03/24/2022 Social History Tobacco Use Types Packs/Day Years Used Date Smoking Tobacco: Never Smokeless Tobacco: Never Tobacco Cessation:Counseling Given: Not Answered Alcohol Use Standard Drinks/Week Comments No 0 [...] 11/21/2020 How often do you attend chur ch or hoahaoism services? 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 Not on file Not on file Last Filed Vital Signs Vital Sign Reading Time Taken Comments Blood Pressure 140/72 10/25/2024 10:12 AM CDT Pulse 71 10/25/2024 10:12 AM CDT Temperature 36.6 C (97.8 F) 07/26/2024 9:19 AM ENVIRONMENTAL COMPLIANCE SPECIALIST Respiratory Rate 16 07/26/2024 9:19 AM ENVIRONMENTAL COMPLIANCE SPECIALIST Oxygen Saturation 97% 07/26/2024 9:19 AM ENVIRONMENTAL COMPLIANCE SPECIALIST Inhaled Oxygen Concentration - - Weight 105.2 kg (232 lb) 10/25/2024 10:12 AM CDT Height 165.1 cm (5' 5 ) 10/25/2024 10:12 AM CDT Body Mass Index 38.61 10/25/2024 10:12 AM CDT Plan of Treatment Not on file Procedures Procedure Name Priority Date/Time Associated Diagnosis Comments DEXA AXIAL SKELETON BONE DENSITY 1 OR MORE SITES Schedule Routine, Read Routine (OP Routine) 10/25/2024 10:58 AM CDT Osteoporosis screening Postmenopausal MN ARTHROCENTESIS ASPIR&/INJ MAJOR JT/BURSA W/O US Routine 10/25/2024 10:15 AM CDT Primary osteoarthritis of right knee SCREENING MAMMOGRAM BILATERAL W JEAN Schedule Routine, Read Routine (OP Routine) 09/14/2023 COLONOSCOPY Routine 07/23/2020 HEPATITIS C AB W/REFL TO HCV RNA, QN, PCR (REFL) Routine 11/02/2017 9:53 AM CDT Need for hepatitis C screening test from Last 3 Months or Most Recently Relevant to Health Maintenance Results * Dexa Axial Skeleton Bone Density 1 or 2 Site (10/25/2024 10:58 AM CDT) Anatomical Region Laterality Modality Body N/A Other 10/25/2024 4:25 PM CDT Narrative 10/25/2024 4:25 PM CDT EXAM DESCRIPTION: DEXA AXIAL SKELETON BONE DENSITY 1 OR MORE SITES REASON FOR STUDY: 64 y/o year old F with given history of: Osteoporosis Screening Screening. Educational Psychologist/Model: [employer] SL ([id number]/N [id number]) Facility LSC value of 0.022 for the AP spine, 0.027 for the femur, and 0.023 for the forearm. CLINICAL INFORMATION: Current height: 65 inches Maximum height: 66 inches Weight: 232 pounds Risk factors: Postmenopausal, adult fracture COMPARISON: None available FINDINGS: AP LUMBAR SPINE L1-L4: Total BMD is 1.017 g/cm2 T-score is -0.3 LEFT HIP: Total BMD is 0.941 g/cm2 T-score is 0.0 Femoral neck BMD is 0.731 g/cm2 T-score is -1.1 FRAX: 10 year risk for a major osteoporotic fracture is 12 %, 10 year risk for a hip fracture is 0.8 % Per National Osteoporosis Foundation guidelines, this patient does not meet the criteria for pharmacological treatment of patients with FRAX 10 year major osteoporotic fracture risk scores of = or greater than 20% or a 10 year probability of a hip fracture = or greater than 3%, to reduce fracture risk. Additional factors such as frequent falls are not represented in FRAX and warrant individual clinical judgment. IMPRESSION: Low Bone Mass. REFERENCE: Bone mineral density: T-Score: Normal (T-score above or = -1.0) Low bone mass (T-score between -1.0 and -2.5) replaces the previously used term osteopenia Osteoporosis (T-score = or below -2.5) Z-Score: Within the expected range for age (Z-score above -2.0) Below the expected range for age (Z-score is -2.0 or below) Please see below follow up recommendations. Medical evaluation for secondary causes of low bone mineral density may be appropriate. FRAX is a World Health Organization validated fracture risk assessment tool that calculates a person's 10 year probability of a major osteoporosis related fracture and hip fracture. According to the National Osteoporosis Foundation guidelines, postmenopausal women and men age 50 or older with low bone mass and a 10 year probability of a major osteoporosis related fracture = or greater than 20% or a 10 year probability of a hip fracture = or greater than 3% should be considered for pharmacological treatment for the prevention of osteoporosis. For further information, including treatment recommendations, please refer to the 2019 ISCD Official Positions (http://www.iscd.org) and the NOF's Clinician's Guide to Prevention and Treatment of Osteoporosis (http://www.nof.org/professionals/clinical-guidelines) THIS IS AN ELECTRONICALLY VERIFIED FINAL REPORT 10/25/2024 4:25 PM - Electronically signed by Atilio Luciano M.D. MF: [id number] Report ID: [id number] Reading Location: [id number] Note Atilio Luciano MD - 10/25/2024 EXAM DESCRIPTION: DEXA AXIAL SKELETON BONE DENSITY 1 OR MORE SITES REASON FOR STUDY: 64 y/o year old F with given history of:Osteoporosis Screening Screening. Educational Psychologist/Model: [employer] SL (S/N [id number]) Facility LSC value of 0.022 for the AP spine, 0.027 for the femur, and0.023 for the forearm. CLINICAL INFORMATION: Current height: 65 inches Maximum height: 66 inches Weight: 232 pounds Risk factors: Postmenopausal, adult fracture COMPARISON: None available FINDINGS: AP LUMBAR SPINE L1-L4: Total BMD is 1.017 g/cm2 T-score is -0.3 LEFT HIP: Total BMD is 0.941 g/cm2 T-score is 0.0 Femoral neck BMD is 0.731 g/cm2 T-score is -1.1 FRAX: 10 year risk for a major osteoporotic fracture is 12 %, 10 year risk for ahip fracture is 0.8 % Per National Osteoporosis Foundation guidelines, this patient does notmeet the criteria for pharmacological treatment of patients with FRAX 10 yearmajor osteoporotic fracture risk scores of = or greater than 20% or a 10 year probability of a hip fracture = or greater than 3%, to reduce fracturerisk. Additional factors such as frequent falls are not represented in FRAX and warrant individual clinical judgment. IMPRESSION: Low Bone Mass. REFERENCE: Bone mineral density: T-Score: Normal (T-score above or = -1.0) Low bone mass (T-score between -1.0 and -2.5) replaces thepreviously used term osteopenia Osteoporosis (T-score = or below -2.5) Z-Score: Within the expected range for age (Z-score above -2.0) Below the expected range for age (Z-score is -2.0 or below) Please see below follow up recommendations. Medical evaluation forsecondary causes of low bone mineral density may be appropriate. FRAX is a World Health Organization validated fracture risk assessmenttool that calculates a person's 10 year probability of a major osteoporosisrelated fracture and hip fracture. According to the National OsteoporosisFoundation guidelines, postmenopausal women and men age 50 or older with low bonemass and a 10 year probability of a major osteoporosis related fracture = or greater than 20% or a 10 year probability of a hip fracture = or greaterthan 3% should be considered for pharmacological treatment for the preventionof osteoporosis. For further information, including treatment recommendations, please referto the 2019 ISCD Official Positions (http://www.iscd.org) and the NOF's Clinician's Guide to Prevention and Treatment of Osteoporosis (http://www.nof.org/professionals/clinical-guidelines) THIS IS AN ELECTRONICALLY VERIFIED FINAL REPORT 10/25/2024 4:25 PM - Electronically signed by Atilio Luciano M.D. MF: [id number] Report ID: [id number] Reading Location: [place] [address] [place] [facility] IMG DXA PROCEDURES Zaira l Result * [place] ARTHROCENTESIS ASPIR&/INJ MAJOR JT/BURSA W/O US (10/25/2024 10:15 AM CDT) Narrative Gerard Spicer MD - 10/25/2024 10:15 AM CDT Gerard Spicer MD 10/25/2024 12:06 PM Large Joint (Hip, Knee, Shoulder) Injection: R knee Performed by: Gerard Spicer MD Authorized by: Gerard Spicer MD Large Joint Injection/Aspiration: Consent Given by: Patient Site marked: the procedure site was marked Timeout: prior to procedure the correct patient, procedure, and site was verified Verbal consent obtained: Yes Supporting Documentation: Indications: Pain Procedure Details: Location: Knee Site: R knee Needle Size: 22 G Approach: Anterolateral Ultrasound guided: No Fluroscopic guidance: No Medications: 80 mg methylPREDNISolone acetate 80 mg/mL; 3 mL lidocaine 20 mg/mL (2 %) Patient tolerance: Patient tolerated the procedure well with no immediate complications us Gerard Spicer MD IN CLINIC/BEDSIDE ORDERA BLES Final Result * Screening Mammogram Bilateral W Jean (09/14/2023) Anatomical Region Laterality Modality Breast Bilateral Mammography Generic External Data Provider IMG MAMMO PROCEDU RES Final Result * (ABNORMAL) Colonoscopy (07/23/2020) Anatomical Region Laterality Modality Other us Historical Provider ENDOSCOPY PROCEDURES Zaira l Result * HEPATITIS C AB W/REFL TO HCV RNA, QN, PCR (REFL) (11/02/2017 9:53 AM CDT) Hep C Ab NON-REACTI VE NON-REACTI VE [facility] [place] SIGNAL TO CUT-OFF 0.01 <1.00 [facility] [place] Blood specimen (specimen) 11/02/2017 9:53 AM CDT 11/03/2017 7:15 AM CDT Narrative Resulting Agency Comment Performing Organization Information: Site ID: [id number] Name: [email or web address] Address: [address] [place], [place] [address] Director: Jose Mahmood D.O., MPH us Gerard Najera MD LAB BLOOD ORDERABLE S Final Result [facility] LORI Garcia from Last 3 Months or Most Recently Relevant to Health Maintenance Insurance [facility] ACCESS [place] BL CHOICE PRF PPO [place] Advance Directives For more information, please contact: [phone] * Full Code (Latest Code Status on File) Date Activated Date Inactivated Comments 06/07/2024 12:24 PM 06/07/2024 7:13 PM * Full Code Date Activated Date Inactivated Comments 11/20/2020 8:50 AM 11/25/2020 6:23 PM Care Teams Flavorer Relationship Specialty Start Date End Date Lyle Steele PA [address] [facility] [address] [place] [address] PCP - General Internal Medicine 02/27/22 [place] [address] [place] [address] Consulting Physician Gastroenterology 11/25/20 Gerard Spicer MD [address] [facility] [address] [place] [address] Surgeon Orthopedic Surgery 07/21/23 [facility] 07/26/24
--- OUTSIDE RECORDS SUMMARY | 2024-10-31 16:16 | XMS_ITS | Clinical Summary ---
Author Organization [facility] A Address [address] [place] [address] Care Team Providers Care Tool Clerk Name Role Phone Roger Ellsworth MD Unavailable [phone] Lyle Steele Primary Care Provider Gerard Spicer MD Unavailable [phone] Allergies Active Allergy Reactions Criticality Noted Date [...] (03/15/2021): Added automatically from request for surgery [id number] Primary osteoarthritis of right knee 09/12/2020 Class 2 obesity with body ma ss index (BMI) of 38.0 to 38.9 in adult 07/18/2020 Assessment & Plan (07/26/2024 8:29 AM CLINICAL TRIAL EDUCATOR): The patient was counseled on the importance of maintaining a healthy weight and the risks of obesity. Weight loss recommended. Assessment & Plan (05/11/2024 4:00 PM CLINICAL TRIAL EDUCATOR): Wt Readings from Last 3 Encounters: 05/11/24 [...] diet Assessment & Plan (05/13/2021 10:38 AM CLINICAL TRIAL EDUCATOR): Wt up Assessment & Plan (01/21/2021 11:20 AM CDT): Work to drop over time Assessment & Plan (07/18/2020 10:41 AM CLINICAL TRIAL EDUCATOR): Cont to drop some wt Posterior knee pain, right 07/18/2020 Assessment & Plan (07/18/2020 10:43 AM CLINICAL TRIAL EDUCATOR): Not clear if knee or thigh not apparent nerve would askortho for eval and Thoughts.workup and rx. Gastroesophageal reflux disease without esophagi tis 07/04/2020 Assessment & Plan (05/13/2021 10:37 AM CLINICAL TRIAL EDUCATOR): gerd contoroled and not on ppi consdier [...] kidneys. Assessment & Plan (07/18/2020 10:39 AM CLINICAL TRIAL EDUCATOR): Hiccups with meat and not lequids or [...] type Assessment & Plan (07/04/2020 11:32 AM CLINICAL TRIAL EDUCATOR): Prolonged top Or tori of month for over a month and neg strep trial prilosce 20 bid and diet and see if Helps. Renal effect disscused but lats gfr nl and montior and try to get off Chronic UTI 07/06/2019 Assessment & Plan (01/16/2020 10:54 AM CDT): Abn nl urine stable and without issues and not treat Assessment & Plan (07/06/2019 11:36 AM CLINICAL TRIAL EDUCATOR): Repeated urine showing abn And cult + f9or uti with + nitrates and wbc as without c/op will not treat. But if c.o then look at treating and can use the culture we have to guide r Pure hypercholesterolemia 05/25/2018 Assessment & Plan (07/26/2024 8:29 AM CLINICAL TRIAL EDUCATOR): Counseled on heart healthy diet exercise Assessment & Plan (05/13/2021 10:37 AM CLINICAL TRIAL EDUCATOR): ldl at 127 and not on meds [...] limited. Assessment & Plan (07/18/2020 10:40 AM CLINICAL TRIAL EDUCATOR): ldl at 128 with ascvd risk 4% [...] target. Assessment & Plan (05/25/2018 4:33 PM CLINICAL TRIAL EDUCATOR): ldl atr 140 and less then 130 [...] 11/09/2017 Assessment & Plan (05/13/2021 10:36 AM CLINICAL TRIAL EDUCATOR): a1c at 5.3 and nl Assessment & Plan (01/21/2021 11:19 AM CDT): a1c at 5.4 and nl Assessment & Plan (07/18/2020 10:39 AM CLINICAL TRIAL EDUCATOR): a12c droopepd and staying down at 5.2 check onr eturn Assessment & Plan (01/16/2020 10:47 AM CDT): a1cv at 5.3 and nl now Assessment & Plan (11/01/2018 10:47 AM CDT): a1c at 5.4 and nl Assessment & Plan (05/25/2018 4:32 PM CLINICAL TRIAL EDUCATOR): a1c at 5.4 and 5.6 nl. Assessment & Plan (11/09/2017 4:44 PM CDT): Check on return Chronic renal failure, stage 2 (mild) 06/18/2017 Assessment & Plan (07/26/2024 8:29 AM CLINICAL TRIAL EDUCATOR): Discussed avoiding nephrotoxic drugs Assessment & Plan (05/13/2021 10:40 AM CLINICAL TRIAL EDUCATOR): cret cl 61 and has been To [...] kidneys. Assessment & Plan (07/04/2020 11:40 AM CLINICAL TRIAL EDUCATOR): Last gfr came to nl with prior 2 were not Monitor and try to liiimt ppi's Assessment & Plan (07/06/2019 11:35 AM CLINICAL TRIAL EDUCATOR): Stable screens and check 24 hr ruien [...] optios. Assessment & Plan (05/25/2018 4:32 PM CLINICAL TRIAL EDUCATOR): 24 hr urine at 59 and was [...] yr'ly. Assessment & Plan (06/18/2017 4:01 PM CLINICAL TRIAL EDUCATOR): gfr at 73 and nl 75. So [...] 03/11/2017 Assessment & Plan (07/06/2019 11:34 AM CLINICAL TRIAL EDUCATOR): mimld and not worse and self montior if see's s worse starts dropoing thing then lneeds looked into and consdier surg cock up splints for intila conservative rx Assessment & Plan (05/25/2018 4:34 PM CLINICAL TRIAL EDUCATOR): Mild intermiten and stable Assessment & Plan (06/18/2017 3:55 PM CLINICAL TRIAL EDUCATOR): Not an issue now Assessment & Plan (03/11/2017 3:17 PM CDT): Splint have seemed to stop this. If finds yourself droping things or getting worse then needs nerve study and seugical referral to prevent permanent damage Vitamin B12 deficiency 03/11/2017 Assessment & Plan (05/13/2021 10:39 AM CLINICAL TRIAL EDUCATOR): b12 543 and stble on 500 tid Assessment & Plan (01/21/2021 11:16 AM CDT): Taking inermittently and at 540 great and cont as doing byut not clear what doing Assessment & Plan (07/18/2020 10:43 AM CLINICAL TRIAL EDUCATOR): Stay with and check onreturn Assessment & Plan (07/06/2019 11:33 AM CLINICAL TRIAL EDUCATOR): Cont and check on return Assessment & Plan (11/01/2018 10:48 AM CDT): b12 now nl at 921 and stay there Assessment & Plan (05/25/2018 4:30 PM CLINICAL TRIAL EDUCATOR): b12 levels at 9990 nd here is ascceptable and would not want higher. Suggest taking 5 days a week instead of daily. Assessment & Plan (11/09/2017 4:31 PM CDT): Restart 5 00 a day and wshould get back up. To above 400 Assessment & Plan (06/18/2017 4:00 PM CLINICAL TRIAL EDUCATOR): b12 dropped back to low nl and [...] 03/11/2017 Assessment & Plan (07/26/2024 8:29 AM CLINICAL TRIAL EDUCATOR): Discussed routine screenings and vaccines Assessment & Plan (07/18/2020 10:42 AM CLINICAL TRIAL EDUCATOR): Colon doing mond. Low fall risk derpioens screen neg cog screen neg Tsh,a1c cmp essentiall nl. Had flu shot and suggest shingles shot series. Christopher up to date. Assessment & Plan (07/06/2019 11:38 AM CLINICAL TRIAL EDUCATOR): farhat set female christopher up to date. pamela bailon for 6 yrs having ist flu shot [...] 03/11/2017 Assessment & Plan (07/26/2024 8:31 AM CLINICAL TRIAL EDUCATOR): Recommend DASH diet, heart healthy lifestyle, exercise. Discussed the risks of hypertension. Assessment & Plan (07/20/2023 7:17 PM CLINICAL TRIAL EDUCATOR): Recommend DASH diet, heart-healthy lifestyle, exercise. Discussed the risks of hypertension. Assessment & Plan (01/15/2023 7:08 AM CDT): Recommend DASH diet, heart-healthy lifestyle, exercise. Discussed the risks of hypertension. Assessment & Plan (06/06/2022 7:56 AM CLINICAL TRIAL EDUCATOR): Recommend DASH diet, heart-healthy lifestyle, exercise. Discussed the risks of hypertension. Assessment & Plan (12/05/2021 8:45 AM CDT): Recommend DASH diet, heart healthy lifestyle, exercise. Discussed the risks of hypertension. Assessment & Plan (05/13/2021 10:41 AM CLINICAL TRIAL EDUCATOR): htn good and watch and crf stable [...] kidneys. Assessment & Plan (07/18/2020 10:37 AM CLINICAL TRIAL EDUCATOR): Last cr cl came back nl at [...] kidneys. Assessment & Plan (07/06/2019 11:33 AM CLINICAL TRIAL EDUCATOR): bp good on meds and no ch [...] hypertension. Assessment & Plan (05/25/2018 4:29 PM CLINICAL TRIAL EDUCATOR): Low potassium from dyazide and batsheva potassium [...] bp. Assessment & Plan (06/18/2017 3:53 PM CLINICAL TRIAL EDUCATOR): bp good and no chagnesHypertension, Medical treament [...] stayon Assessment & Plan (07/06/2019 11:38 AM CLINICAL TRIAL EDUCATOR): Stable but at risk for mini flairs Assessment & Plan (05/25/2018 4:30 PM CLINICAL TRIAL EDUCATOR): Chronic and ongoing. Uses daily eds. As dyazide. Aldactone a dnotassim stilneeds potassium and stil low willnot restartthe dyazide. Assessment & Plan (06/18/2017 3:54 PM CLINICAL TRIAL EDUCATOR): For now settled with meds and do [...] with major abarupt head movement. Offered neuro cut out and marking machine operator referral as next stop to [...] 02/14 Assessment & Plan (07/06/2019 11:34 AM CLINICAL TRIAL EDUCATOR): Stable and mild intermittnet and swelf montior eval and referrral if wrose Assessment & Plan (06/18/2017 3:55 PM CLINICAL TRIAL EDUCATOR): Not an issue now Assessment & Plan [...] 02/14/2017 Assessment & Plan (07/06/2019 11:35 AM CLINICAL TRIAL EDUCATOR): Better over all very marked resonce to [...] 01/19/2024 Assessment & Plan (05/13/2021 10:42 AM CLINICAL TRIAL EDUCATOR): On anticoag and congt meds in general [...] 07/04/202007/18 Assessment & Plan (07/04/2020 11:30 AM CLINICAL TRIAL EDUCATOR): Post lower thigh and bottom of calf/heel region apperacne fo scialta pred puose would consider ifnot better. BMI 39.0-39.9,adult 07/06/2019 07/18/19 21 Assessment & Plan (07/04/2020 11:39 AM CLINICAL TRIAL EDUCATOR): Wt of helps a lot of things and work with Assessment & Plan (01/16/2020 10:55 AM CDT): Stable and need s to lose Assessment & Plan (07/06/2019 11:37 AM CLINICAL TRIAL EDUCATOR): wsork to Drop some wt Chest wall syndrome 11/09/2017 01/16/20 23 Assessment & Plan (07/04/2020 11:31 AM CLINICAL TRIAL EDUCATOR): r chest if muscular sckelatal and Move. Flex twice and possible steroid to hel not shingles Assessment & Plan (11/09/2017 4:39 PM CDT): Work zrea and Time. Skin lesion of right leg 06/18/2017 Assessment & Plan (11/09/2017 4:33 PM CDT): Referral to plastics here for eval for removal. Dr jorge Assessment & Plan (06/18/2017 4:06 PM CLINICAL TRIAL EDUCATOR): Referral to derm Sore throat 06/12/2017 11/09/2017 Assessment & Plan (08/21/2017 11:05 AM CLINICAL TRIAL EDUCATOR): Rapid strep positive. Assessment & Plan (06/12/2017 11:53 AM CLINICAL TRIAL EDUCATOR): Rapid strep positive. Strep pharyngitis 06/12/2017 11/09/2017 Assessment & Plan (08/21/2017 11:06 AM CLINICAL TRIAL EDUCATOR): Rapid strep positive. Recommend humidification fluids and rest. Tylenol/ibuprofen prn fever. Take antibiotic as directed. Patient was encouraged to take her antibiotic with food. I also recommended a daily probiotic, yogurt or capsule, while on the antibiotic. We discussed the contagiousness of illness. We discussed ways to prevent recurrence and spread to others. Assessment & Plan (06/18/2017 3:52 PM CLINICAL TRIAL EDUCATOR): Treated and the Roof of mouth Sore and red but not strep. Gargle with Peroxide to help clear Assessment & Plan (06/12/2017 11:21 AM CLINICAL TRIAL EDUCATOR): Rapid strep positive. Recommend humidification fluids and rest. Tylenol/ibuprofen prn fever. Take antibiotic as directed. Patient was encouraged to take her antibiotic with food. I also recommended a daily probiotic, yogurt or capsule, while on the antibiotic. We discussed the contagiousness of illness. We discussed ways to prevent recurrence and spread to others. Cough 06/12/2017 06/18/2017 Assessment & Plan (06/12/2017 11:54 AM CLINICAL TRIAL EDUCATOR): Rapid influenza A negative and B negative. [...] limited. Assessment & Plan (06/18/2017 4:02 PM CLINICAL TRIAL EDUCATOR): Check on return Assessment & Plan (03/11/2017 [...] Overview (05/11/2024): Note: history of colon resection Encounters Date Type Department Care Team Description 10/26/2024 Orders Only [facility] Primary Care at [address] [place] [address] Lyle Steele PA Osteopenia, unspecified location (Primary Dx) 10/26/2024 Results Follow-Up [facility] Primary Care at [address] [place] [address] Lyle Steele PA 10/25/2024 10:39 AM CDT - 10/25/2024 11:59 PM CDT Hospital Encounter [facility] [address] [place] [address] Osteoporosis screening; Postmenopausal Discharge Disposition: Discharge to home or self care 10/25/2024 10:15 AM CDT Office Visit [facility] [address] [facility] [address] [place] [address] Gerard Spicer MD Primary osteoarthritis of right knee (Primary Dx) 08/04/2024 Telephone [facility] Primary Care at [address] [place] [address] Lyle Steele PA from Last 3 Months Immunizations Immunization Administration Dates Next Due Influenza LAIV (Nasal) 07/26/2024(Deferred: Lissy ent Refused) Influenza, Quadrivalent, Spl it, Preservative Free, Intramuscular 07/21/2023,06/06/2022,05/13/2021,07/04,07/06/2019 Influenza, Unspecified 05/11/2024(Deferr ed: Patient Refused),06/06/2022(Deferred: Patient Refused),07/06/2019(Deferred: Patient Refused),03/29/2019(Deferred: Patient Refused),03/29/2019(Deferred: Patient Refused),09/21/2018(Deferred: Patient ill today),03/29/2018(Deferred: Patient Refused),03/29/2018(Deferred: Patient Refused),03/29/2018(Deferred: Patient Refused) Moderna SARS-CoV-2 Monovalen t Vaccination (12+ YRS) 12/05/2020,10/24/2020 Tdap 12/05/2021 ZOSTER Recombinant 06/06/2022,03/24/2022 Surgical History Surgery Date Site/Laterality Comments CHOLECYSTECTOMY 06/29/2006 - 06/28/2007 HYSTERECTOMY 06/29/1999 - 06/28/2000 APPENDECTOMY 06/29/1976 - 06/28/1977 TONSILLECTOMY 06/29/1973 - 06/28/1974 COLON SURGERY partial resection ERCP COLONOSCOPY STOMACH SURGERY Medical History Medical History Date Comments PONV (postoperative nausea and vomiting) Chronic constipation Diverticulosis GERD (gastroesophageal reflux disease) Deaf, left Cholelithiasis Pancreatitis Arthritis Family History Medical History Relation Name Comments Lung cancer Mother Arthritis Other Cancer Other Heart disease Other Relation Name Status Comments Mother Other Social History Tobacco Use Types Packs/Day Years [...] any clubs o r organizations such as amish groups, unions, fraternal or athletic groups, or [...] on file Legal Sex Female 11:23 AM CLINICAL TRIAL EDUCATOR Gender Identity Female 11/07/2020 10:13 AM CDT Sexual Orientation Not on file 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 Not on file Not on file Obstetrics History Last Filed Vital Signs Vital Sign Reading Time Taken Comments Blood Pressure 140/72 10/25/2024 10:12 AM CDT Pulse 71 10/25/2024 10:12 AM CDT Temperature 36.6 C (97.8 F) 07/26/2024 9:19 AM CLINICAL TRIAL EDUCATOR Respiratory Rate 16 07/26/2024 9:19 AM CLINICAL TRIAL EDUCATOR Oxygen Saturation 97% 07/26/2024 9:19 AM CLINICAL TRIAL EDUCATOR Inhaled Oxygen Concentration - - Weight 105.2 kg (232 lb) 10/25/2024 10:12 AM CDT Height 165.1 cm (5' 5 ) 10/25/2024 10:12 AM CDT Body Mass Index 38.61 10/25/2024 10:12 AM CDT Plan of Treatment Health Maintenance Due Date Last Done Comments Covid-19 Vaccine ( season) 2024 06/07/2021, 12/05/2020, 10/24/2020 Breast Cancer Screening-Mammogram 09/13/2024 09/14/2023, 08/22/2021, 06/04/2020, Additional history exists Influenza Vaccine (Season Ended) 2025 07/21/2023, 06/06/2022, 05/13/2021, Additional history exists Colon Cancer Screening-Colonoscopy 07/23/2025 07/23/2020, 05/07/2015 Depression Screening 07/26/2025 07/26/2024, 05/11/2024, 01/19/2024, Additional history exists Regular Well Visit/Exam 18-64 07/26/2025 07/26/2024, 07/21/2023, 12/05/2021, Additional history exists Osteoporosis Screening-Bone Density Scan 10/25/2026 10/25/2024 DTaP/Tdap/Td Vaccine (2 - Td or Tdap) 12/06/2031 12/05/2021 Hepatitis C Screening Completed 11/02/2017 Colon Cancer Screening-CT Colonography Discontinued 07/23/2020, 05/07/2015 Colon Cancer Screening-DNA Stool Discontinued 07/23/2020, 05/07/2015 Colon Cancer Screening-FIT Discontinued 07/23/2020, Colon Cancer Screening-Sigmoidoscopy Discontinued 07/23/2020, 05/07/2015 Zoster Vaccine Completed 06/06/2022, 03/24/2022 Hepatitis B Screening Completed 07/20/2024 Pneumococcal vaccine <65 Aged Out No longer eligible based on patient's age to complete this topic Procedures Procedure Name Priority Date/Time Associated Diagnosis Comments DEXA AXIAL SKELETON BONE DENSITY 1 OR MORE SITES Schedule Routine, Read Routine (OP Routine) 10/25/2024 10:58 AM CDT Osteoporosis screening Postmenopausal IA ARTHROCENTESIS ASPIR&/INJ MAJOR JT/BURSA W/O US Routine [...] with given history of: Osteoporosis Screening Screening. Clinical Documentation Consultant/Model: [employer] (S/N [id number]) Facility LSC value of 0.022 for the [...] Atilio Luciano M.D. MF: [email or web address] Report ID: [id number] Reading Location: [id number] Procedure Note Atilio Luciano MD - 10/25/2024 EXAM DESCRIPTION: DEXA AXIAL SKELETON BONE DENSITY 1 OR MORE SITES REASON FOR STUDY: 64 y/o year old F with given history of:Osteoporosis Screening Screening. Clinical Documentation Consultant/Model: [employer] (S/N [id number]) Facility LSC value of 0.022 for the [...] Atilio Luciano M.D. MF: [email or web address] Report ID: [id number] Reading Location: [place] [address] [place] Lyle HICKEY IMG DXA PROCEDURES Zaira l Result * IA ARTHROCENTESIS ASPIR&/INJ MAJOR JT/BURSA W/O US (10/25/2024 [...] Anatomical Region Laterality Modality Breast Bilateral Mammography us Generic External Data Provider IMG MAMMO PROCEDU RES Final Result * (ABNORMAL) Colonoscopy (07/23/2020) Anatomical Region Laterality Modality Other Historical Provider ENDOSCOPY PROCEDURES Zaira l Result * HEPATITIS C AB W/REFL TO HCV RNA, QN, PCR (REFL) (11/02/2017 9:53 AM CDT) Hep C Ab NON-REACTI VE NON-REACTI VE [facility] Sonali SANDOVAL SIGNAL TO CUT-OFF 0.01 <1.00 [facility] - [facility] Blood specimen (specimen) 11/02/2017 9:53 AM CDT 11/03/2017 7:15 AM CDT Narrative Resulting Agency Comment Performing Organization Information: Site ID: [id number] Name: [facility] Address: [address] [place] [address] [place] [address] Director: Jose Mahmood D.O., MPH Gerard Najera MD LAB BLOOD ORDERABLE S Final Result [facility] LORI from Last 3 Months or Most Recently Relevant to Health Maintenance Insurance [employer] [place] [employer] [place]F [place] Advance Directives For more information, please contact: [phone] * Full Code (Latest Code Status on File) Date Activated Date Inactivated Comments 06/07/2024 12:24 PM 06/07/2024 7:13 PM * Full Code Date Activated Date Inactivated Comments 11/20/2020 8:50 AM 11/25/2020 6:23 PM Care Teams Tool Clerk Relationship Specialty Start Date End Date Lyle Steele PA [address] [place] [address] PCP - General Internal Medicine 02/27/22 [place] [address] [place] [address] Consulting Physician Gastroenterology 11/25/20 Gerard Spicer MD [address] [place] [address] Surgeon Orthopedic Surgery 07/21/23 [facility] 07/26/24
== END 2024-10-31 15:24 | disposition home or self-care (01) ==
LOC: ANHIMG 15:41
PROVIDERS: PCP Physician Assistant; Visit Provider Obstetrics & Gynecology
DX: Z12.31 Encounter for screening mammogram for malignant neoplasm of breast (principal)
CPT/HCPCS: 77063; 77067